=== PATIENT | male | born 1960 | race Caucasian/White ===

== ENCOUNTER 2017-09-17 11:08 | Emergency (ER) | payer MEDICARE ==
[~2017-09-17] VITALS: Ht 182.9 cm; Wt 91.4 kg
[2017-09-17 11:12] VITALS: BP 145/87
[2017-09-17] MEDS ORDERED: HYDROcodone/APAP 5/325 TABLET ONE (12:18)
[2017-09-17] MEDS ORDERED: HYDROcodone/APAP 5/325 TABLET PO ONE (12:30)
== END 2017-09-17 13:56 | disposition home or self-care (01) ==
LOC: ED 13:50
DX: S62.390A Other fracture of second metacarpal bone, right hand, initial encounter for closed fracture (principal); S09.90XA Unspecified injury of head, initial encounter; Y04.2XXA Assault by strike against or bumped into by another person, initial encounter; Y93.89 Activity, other specified; Y92.830 Public park as the place of occurrence of the external cause; Y99.8 Other external cause status
CPT/HCPCS: 29125; 99284